=== PATIENT | female | born 1970 | race Caucasian/White ===

== ENCOUNTER → 2017-09-26 | Outpatient (CLI) | payer OTHER ==
--- NOTE | 2017-09-26 14:16 | Diagnostic Imaging Report ---
PROCEDURE:X-RAY LEFT WRIST, COMPLETE COMPARISON:None. INDICATIONS:WRIST PAIN FINDINGS: BONES: Normal mineralization. No acute fracture or dislocation. Joint spaces are within normal limits. Mild deformity of the distal portion of the scaphoid bone may be related to prior traumatic injury. Mild degenerative changes of the first and second carpometacarpal joints. SOFT TISSUES:Negative. OTHER:Negative. CONCLUSION: No acute osseous abnormality. Mild degenerative changes. Siddhartha Barahona M.D. Dictated by: Siddhartha Barahona M.D. on 09/26/2017 at 14:18 Electronically approved by: Siddhartha Barahona M.D. on 09/26/2017 at 14:18
== END ==
LOC: RAD 13:52
PROVIDERS: ATTEND Internal Medicine
DX: M25.532 Pain in left wrist (principal)

== ENCOUNTER 2019-11-15 08:55 | Emergency (ER) | payer BC, OTHER ==
[~2019-11-15] VITALS: Ht 162.6 cm; Wt 56.7 kg
[2019-11-15] MEDS ORDERED: HYDROCODONE/APAP 5MG-325MG TAB PO ONE (09:15)
--- NOTE | 2019-11-15 10:11 | NUR ---
RADIOLOGY ON WAY FOR PT
[2019-11-15] MEDS ORDERED: SODIUM CHLORIDE 0.9% 1000ML 1,000 ML IV STA (10:22)
--- NOTE | 2019-11-15 11:10 | Diagnostic Imaging Report ---
EXAMINATION: LOWER LEG LEFT INDICATION: Leg pain COMPARISON: None FINDINGS: AP and lateral views of the tibia and fibula were obtained. No acute fracture or dislocation. Alignment is anatomic. Soft tissues appear unremarkable. IMPRESSION: No acute osseous injury. Signed by: Gabe Soto MD on 11/15/2019 11:07 AM
--- NOTE | 2019-11-15 11:45 | Emergency Department Note ---
History of Present Illnes History of Present Illness Chief Complaint: Extremity Trauma/Pain History of Present Illness This is a 49 year old female arrived with shooting pain along the lateral aspect of her left foot. Patient denies any trauma. Patient describes the pain as tingling/burning. Patient states the pain is intermittent.. Historian: Patient Arrival Mode: Car Airborne Sensor Specialist Required: No Onset (how long ago): day(s) Radiation: Reports non-radiation Onset quality: sudden Duration (how long): day(s) Timing of current episode: intermittent Past Medical/Family History Physician Review I have reviewed the patient's past medical and family history. Any updates have been documented here. Past Medical History Recent Fever: No Clinical Suspicion of Infectio: No New/Unexplained Change in Ment: No Past Medical History: None Past Surgical History: None Social History Smoking Cessation: Never Smoker Counseling Performed: No Alcohol Use: None Any Illegal Drug Use: No TB Exposure/Symptoms: No Physically hurt or threatened: No Other Last Tetanus: OOD Any Pre-Existing Lines (PICC,: No Is patient up to date on immun: No Last Flu: NONE Last Pneumovax: NONE Review of Systems Review of Systems Constitutional: Reports no symptoms EENTM: Reports no symptoms Cardiovascular: Reports no symptoms Respiratory: Reports no symptoms Gastrointestinal: Reports no symptoms Genitourinary: Reports no symptoms Musculoskeletal: Reports no symptoms, Reports as per HPI, Reports joint pain Integumentary: Reports no symptoms Neurological: Reports as per HPI, Reports paresthesia Psychological: Reports no symptoms Endocrine: Reports no symptoms Hematological/Lymphatic: Reports no symptoms Physical Exam Related Data Allergies: Coded Allergies: No Known Allergies (Unverified , 11/15/19) Triage Vital Signs Vital Signs Date Time Temp Pulse Resp B/P (MAP) Pulse Ox O2 Delivery O2 Flow Rate FiO2 11/15/19 08:59 98.6 72 16 142/80 99 Physical Exam CONSTITUTIONAL Constitutional: Present well-developed, Present well-nourished HENT HENT: Present normocephalic, Present atraumatic, Present oropharynx clear/moist, Present nose normal HENT L/R: Present left ext ear normal, Present right ext ear normal EYES Eyes: Reports PERRL, Reports conjunctivae normal NECK Neck: Present ROM normal PULMONARY Pulmonary: Present effort normal, Present breath sounds normal CARDIOVASCULAR Cardiovascular: Present regular rhythm, Present heart sounds normal, Present capillary refill normal, Present normal rate GASTROINTESTINAL Abdominal: Present soft, Present nontender, Present bowel sounds normal GENITOURINARY Genitourinary: Present exam deferred SKIN Skin: Present warm, Present dry MUSCULOSKELETAL Musculoskeletal: Present other (tenderness along the lateral aspect of her left fibula, no cellulitis, no crepitus) NEUROLOGICAL Neurological: Present alert, Present oriented x 3, Present no gross motor or sensory deficits PSYCHOLOGICAL Psychological: Present mood/affect normal, Present judgement normal Results Imaging Imaging results reviewed: Yes Assessment & Plan Medical Decision Making MDM 49-year-old female right ED with left lateral aspect leg pain. Certainly appears well, no Homans sign, no swelling, compartments are soft and patient's neurovascularly intact. No concerns of DVT, spoke to patient at length about signs and symptoms of a DVT. Patient expressed understanding. Patient's pain appears to be secondary to her peroneal nerve irritation. Patient stable for discharge home. Assessment & Plan Final Impression: (1) Neuropathy Depart Disposition: HOME, SELF-CARE Last Vital Signs Date Time Temp Pulse Resp B/P (MAP) Pulse Ox O2 Delivery O2 Flow Rate FiO2 11/15/19 08:59 98.6 72 16 142/80 99 Medications in the ED Acetaminophen/ Hydrocodone Bitart 1 ea ONCE ONCE PO Last administered on 11/15/19at 10:11; Admin Dose 1 EA; Start 11/15/19 at 09:15; Stop 11/15/19 at 09:16; Status DC Sodium Chloride 1,000 ml @ 0 mls/hr Q0M STAT IV ; Start 11/15/19 at 10:22; Stop 11/15/19 at 10:23; Status DC JOYCE SINGH DO Nov 15, 2019 11:28
[2019-11-15] MEDS ORDERED: ULTRAM50 MG PO (11:50)
== END 2019-11-15 12:54 | disposition home or self-care (01) ==
LOC: ER 08:57
DX: M79.672 Pain in left foot (principal); G62.9 Polyneuropathy, unspecified
CPT/HCPCS: 99283

== ENCOUNTER 2019-11-23 19:11 | Emergency (ER) | payer BC ==
[~2019-11-23] VITALS: Ht 162.6 cm; Wt 56.7 kg
[~2019-11-23 19:11] MED LIST: ULTRAM50 MG PO
--- NOTE | 2019-11-23 20:45 | Emergency Department Note ---
History of Present Illnes History of Present Illness Chief Complaint: Eye, Ear, Nose, Throat, Dental History of Present Illness This is a 49 year old female arrived to the ED with complaints of swelling behind her left ear-patient states she woke up and notices swelling, states it feels burning in nature, denies any ear pain, denies any drainage from the ear. Patient denies any fever, no dysphagia, and no other complaints Historian: Patient Arrival Mode: Car Puttying And Calking Supervisor Required: No Onset (how long ago): hour(s) Radiation: Reports non-radiation Onset quality: sudden Duration (how long): day(s) Timing of current episode: constant Progression: unchanged Chronicity: new Context: Denies recent illness Past Medical/Family History Physician Review I have reviewed the patient's past medical and family history. Any updates have been documented here. Past Medical History Recent Fever: No Clinical Suspicion of Infectio: No New/Unexplained Change in Ment: No Past Medical History: None Past Surgical History: None Other Surgery: BREAST AUGMENTATION Social History Smoking Cessation: Never Smoker Counseling Performed: No Alcohol Use: None Any Illegal Drug Use: No TB Exposure/Symptoms: No Physically hurt or threatened: No Family History Family history of heart diseas: No Other Last Tetanus: OOD Any Pre-Existing Lines (PICC,: No Is patient up to date on immun: Yes Last Flu: DENIES Last Pneumovax: DENIES Review of Systems Review of Systems Constitutional: Reports no symptoms, Reports as per HPI EENTM: Reports no symptoms Cardiovascular: Reports no symptoms Respiratory: Reports no symptoms Gastrointestinal: Reports no symptoms Genitourinary: Reports no symptoms Musculoskeletal: Reports no symptoms Integumentary: Reports as per HPI, Reports lumps Neurological: Reports no symptoms Psychological: Reports no symptoms Endocrine: Reports no symptoms Hematological/Lymphatic: Reports no symptoms Physical Exam Related Data Allergies: Coded Allergies: No Known Allergies (Unverified , 11/15/19) Triage Vital Signs Vital Signs Date Time Temp Pulse Resp B/P (MAP) Pulse Ox O2 Delivery O2 Flow Rate FiO2 11/23/19 19:31 98.0 82 17 132/84 98 Vital signs reviewed: Yes Physical Exam CONSTITUTIONAL Constitutional: Present well-developed, Present well-nourished HENT HENT: Present normocephalic, Present atraumatic, Present oropharynx clear/moist, Present nose normal HENT L/R: Present right TM normal, Present right canal normal, Present left ext ear normal, Present right ext ear normal, Present other (firm tender nodule noted over posterior SCM, no superimposed cellulitis, rubbery in nature, mobile, right TM unremarkable, no crepitus,); Absent right impacted cerumen, Absent right bulging TM EYES Eyes: Reports PERRL, Reports conjunctivae normal NECK Neck: Present ROM normal PULMONARY Pulmonary: Present effort normal, Present breath sounds normal CARDIOVASCULAR Cardiovascular: Present regular rhythm, Present heart sounds normal, Present capillary refill normal, Present normal rate GASTROINTESTINAL Abdominal: Present soft, Present nontender, Present bowel sounds normal GENITOURINARY Genitourinary: Present exam deferred SKIN Skin: Present warm, Present dry MUSCULOSKELETAL Musculoskeletal: Present ROM normal NEUROLOGICAL Neurological: Present alert, Present oriented x 3, Present no gross motor or sensory deficits PSYCHOLOGICAL Psychological: Present mood/affect normal, Present judgement normal Assessment & Plan Medical Decision Making MDM 49-year-old female arrives to the ED with complaints of a nodule/lump over her right posterior neck. On exam patient is well-appearing, firm nodule noted over posterior sternocleidomastoid, this may be consistent with an enlarged lymph node versus a possible cyst. Symptoms did start suddenly. Patient denies any fever or chills. Patient informed this may be treated to have viral syndrome, no concerns of mastoiditis on exam. Patient empirically cover with Augmentin and discharged home with outpatient ENT follow-up. Assessment & Plan Final Impression: (1) Lymphadenopathy (2) Cyst of neck Depart Disposition: HOME, SELF-CARE Last Vital Signs Date Time Temp Pulse Resp B/P (MAP) Pulse Ox O2 Delivery O2 Flow Rate FiO2 11/23/19 19:31 98.0 82 17 132/84 98 Home Meds Active Scripts Tramadol Hcl (ULTRAM) 50 Mg Tablet, 50 MG PO Q6HR PRN for Mild Pain (1-3) or Fever>100.8, #12 TAB Prov:JOYCE SINGH DO 11/15/19 JOYCE SINGH DO Nov 23, 2019 20:45
== END 2019-11-23 20:55 | disposition home or self-care (01) ==
LOC: ER 19:11
DX: R59.1 Generalized enlarged lymph nodes (principal)
CPT/HCPCS: 99282

== ENCOUNTER 2020-09-20 19:59 | Emergency (ER) | payer BC, OTHER ==
[~2020-09-20] VITALS: Ht 162.6 cm; Wt 56.7 kg
[2020-09-20] MEDS ORDERED: ONDANSETRON HCL INJ 2MG/ML 2ML 2 MG/ML VIAL IV STA (20:10)
[2020-09-20] MEDS ORDERED: MORPHINE SULFATE INJ 4 MG/ML INJ 1ML IV STA (20:10)
[2020-09-20] MEDS ORDERED: SODIUM CHLORIDE 0.9% 1000ML 1,000 ML IV STA (20:10)
[2020-09-20] MEDS ORDERED: PIPER-TAZ 3.375 GM 50 ML IV STA (20:18)
[2020-09-20] MEDS ORDERED: ACETAMINOPHEN 325 MG TAB PO STA (20:19)
[2020-09-20 20:39] LABS: BASOPHILS % 0.2 % (0.0-1.0); EOSINOPHILS % 0.3 % (0.0-6.0); HEMATOCRIT 39.3 % (34.2-44.1); HEMOGLOBIN 13.3 g/dL (12.0-16.0); LYMPHOCYTES # (AUTO) 0.7 (1.0-3.2); MEAN CORPUSCULAR HGB CONC 33.8 g/dL (31-35); MEAN CORPUSCULAR VOLUME 85.8 fL (81-99); MONOCYTES # (AUTO) 0.5 (0.2-0.8); MONOCYTES % 3.6 % (4.4-11.3); NEUTROPHILS # (AUTO) 12.2 (2.1-6.9); NEUTROPHILS % 90.4 % (38.7-80.0); PLATELET COUNT 323 x10e3/uL (140-360); RED BLOOD COUNT 4.58 x10e6/uL (3.6-5.1); RED CELL DISTRIBUTION WIDTH 13.1 % (11.7-14.4)
[2020-09-20] MEDS ORDERED: SODIUM CHLORIDE 0.9% 50ML 50 ML ONE ×2 (20:43→21:58)
[2020-09-20] MEDS ORDERED: PIPERACILLIN/TAZOBAC 3.375 GM VIAL ONE (20:43)
[2020-09-20 20:47] LABS: CLARITY,URINE HAZY (CLEAR); COLOR,URINE YELLOW (YELLOW); KETONES,URINE NEGATIVE (NEGATIVE); LEUKOCYTE ESTERASE ,URINE MODERATE (NEGATIVE); NITRITE,URINE NEGATIVE (NEGATIVE); PROTEIN,URINE DIPSTICK NEGATIVE (NEGATIVE); URINE UROBILINOGEN 1 mg/dL (0.2 - 1); WBC,URINE (MAN) 21-50 /HPF (0-5)
[2020-09-20 20:48] LABS: BACTERIA,URINE FEW /HPF; EPITHELIAL CELLS,URINE MODERATE /LPF
[2020-09-20 20:54] LABS: ALANINE AMINOTRANSFERASE 30 IU/L (0-55); ALBUMIN 4.2 g/dL (3.5-5.0); ALBUMIN/GLOBULIN RATIO 1.2 (0.8-2.0); ALKALINE PHOSPHATASE 85 IU/L (40-150); ANION GAP 14.8 mmol/L (8-16); BLOOD UREA NITROGEN 13 mg/dL (7-26); BUN/CREATININE RATIO 17 (6-25); CALCIUM 8.9 mg/dL (8.4-10.2); CARBON DIOXIDE 24 mmol/L (22-29); CHLORIDE 103 mmol/L (98-107); CREATINE KINASE 140 IU/L (29-168); CREATININE, SERUM 0.77 mg/dL (0.57-1.11); EST GLOMERULAR FILTRATION RATE > 60 ML/MIN (60-); GLUCOSE 118 mg/dL (74-118); LIPASE 24 U/L (8-78); POTASSIUM 3.8 mmol/L (3.5-5.1); SODIUM 138 mmol/L (136-145)
[2020-09-20] MEDS ORDERED: IOPAMIDOL 370 MG/ML 200 ML INFUS..BTL INJ ONE (21:58)
[2020-09-20 22:22] LABS: BAND NEUTROPHILS % (MANUAL) 12 %; LYMPHOCYTES % (MANUAL) 14 % (19-48); MONOCYTES % (MANUAL) 2 % (3.4-9.0); NEUTROPHILS % (MANUAL) 72 % (40-74)
[2020-09-20 22:23] LABS: HYPOCHROMASIA SLIGHT; PLATELET ESTIMATE ADEQUATE; PLATELET MORPHOLOGY COMMENT NORMAL; RBC MORPHOLOGY COMMENT NORMAL
[2020-09-21] MEDS ORDERED: PIPER-TAZ 3.375 GM 50 ML IV SCH
[2020-09-21] MEDS ORDERED: AUGMENTIN 875-1 EACH PO (00:56)
[2020-09-21] MEDS ORDERED: REGLAN5 MG PO (00:56)
[2020-09-21 01:27] VITALS: BP 117/69
== END 2020-09-21 01:05 | disposition home or self-care (01) ==
LOC: ER 20:04
DX: R10.33 Periumbilical pain (principal); R94.31 Abnormal electrocardiogram [ECG] [EKG]; Z20.822 Contact with and (suspected) exposure to COVID-19
CPT/HCPCS: 36415; 71045; 74177; 80053; 81001; 82550; 82553; 83605; 83690; 84484; 85025; 87040; 93005; 99284; J2270; J2405; J2543; J7030; Q9967; U0002

== ENCOUNTER → 2020-11-27 | Day surgery (SDC) | payer OTHER ==
[~2020-11-27] MED LIST changes: +AUGMENTIN 875-1 EACH PO; +HAIR, SKIN AND1 EAC4 PO; +REGLAN5 MG PO
[2020-11-27 09:05] VITALS: BP 107/73
== END | disposition home or self-care (01) ==
LOC: OR 06:15
PROVIDERS: ATTEND Internal Medicine Gastroenterology
DX: Z12.11 Encounter for screening for malignant neoplasm of colon (principal); K64.8 Other hemorrhoids
CPT/HCPCS: 45378; 81025